=== PATIENT | female | born 1955 | race African-American/Black ===

== ENCOUNTER 2016-10-25 14:26 | Emergency (ER) | payer OTHER ==
[~2016-10-25] VITALS: Ht 160 cm; Wt 72.6 kg
[~2016-10-25 14:26] MED LIST: ALBU1.25 NEB; BUDE10.2 IH; CETI10TA22 PO; DULO20CA PO; FLUT9.9S NS; GLIM2TAB2 PO; HYDR12.53 PO; INSU100I13 SQ; OMEP20TA PO; SAXA5TAB PO
[2016-10-25 15:55] LABS: BASO # 0.1 x10^3/uL (0.0-0.2); BASO % 0 % (0-3); EOS % 0 % (0-3); HEMATOCRIT 37.5 % (36.0-47.0); HEMOGLOBIN 11.8 g/dL (12.0-15.5); LYMPH # 1.4 x10^3/uL (1.0-4.8); LYMPH % 10 % (24-48); MEAN CORPUSCULAR HEMOGLOBIN 28 pg (25-35); MEAN CORPUSCULAR HGB CONC 32 g/dL (31-37); MEAN CORPUSCULAR VOLUME 88 fL (79-100); MONO % 3 % (0-9); NEUT % 86 % (31-73); PLATELET COUNT 419 x10^3/uL (140-400); RED BLOOD COUNT 4.26 x10^6/uL (3.50-5.40); WHITE BLOOD COUNT 14.2 x10^3/uL (4.0-11.0)
[2016-10-25 16:04] LABS: CALCIUM 9.6 mg/dL (8.5-10.1); CREATININE 1.2 mg/dL (0.6-1.0); GFR 55.1; POTASSIUM 3.1 mmol/L (3.5-5.1)
--- NOTE | 2016-10-25 16:27 | EKG ---
[facility] [address] [place] [address] Test Date: 2016-10-25 Test Time: 15:01:10 Pat Name: MAIRA NGUYEN Department: Room: Gender: F [place]: : 1955 Requested By: Jameel PARIS Order Number: [id number] Reading MD: Measurements Intervals [place] Rate: 94 P: -7 MT: 126 QRS: -4 QRSD: 76 T: 45 QT: 382 QTc: 484 Interpretive Statements SINUS RHYTHM LEFTWARD AXIS LOW LIMB LEAD VOLTAGE PROLONGED QT RI6.01 Unconfirmed report No previous ECG available for comparison
[2016-10-25] MEDS ORDERED: POTASSIUM CHLORIDE 20 MEQ TABLET.ER. PO ONE (16:30)
--- NOTE | 2016-10-25 17:52 | PHYS DOC ---
Past Medical History Past Medical History: Asthma, COPD, Diabetes-Type II, Hypertension Past Surgical History: No Surgical History Alcohol Use: None Drug Use: None Adult General Chief Complaint Chief Complaint: SYNCOPE HPI HPI Patient is a 61 year old female who presents with for low blood sugar and associated syncope. She was feeling weak and does not recall time until EMS was at her house. states she passed out so he called EMS. Her blood sugar was low and they gave her IV replacement with normalization of mental status. She had an episode of emesis while passed out and she had slight dyspnea when she woke. She and refused transport by EMS at that time. She is feeling much better now. She denies current dyspnea, chest pain, fever or chills, nausea, abdominal pain, headache, diaphoresis, palpitations, exertional symptoms, hemoptysis, leg pain or swelling. She is taking long- acting insulin in the morning and otherwise taking pills for diabetes. Review of Systems Review of Systems Constitutional: Denies fever or chills [] Eyes: Denies change in visual acuity, redness, or eye pain [] HENT: Denies nasal congestion or sore throat [] Respiratory: Denies cough or shortness of breath [] Cardiovascular: No additional information not addressed in HPI [] GI: Denies abdominal pain, nausea, vomiting, bloody stools or diarrhea [] : Denies dysuria or hematuria [] Musculoskeletal: Denies back pain or joint pain [] Integument: Denies rash or skin lesions [] Neurologic: Denies headache, focal weakness or sensory changes [] Endocrine: Denies polyuria or polydipsia [] Current Medications Current Medications Current Medications Medications (Trade) Dose Ordered Sig/Gladis Start Time Stop Time Status Last Admin Dose Admin Potassium Chloride (Klor-Con) 40 meq 1X ONCE 10/25/16 16:30 10/25/16 16:31 DC 10/25/16 16:59 40 MEQ Allergies Allergies Allergies Coded Allergies Type Severity Reaction Last Updated Verified Penicillins Allergy Intermediate 04/22/15 Yes Physical Exam Physical Exam Constitutional: Well developed, well nourished, no acute distress, non-toxic appearance. [] HENT: Normocephalic, atraumatic, bilateral external ears normal, oropharynx moist, no oral exudates, nose normal. [] Eyes: PERRLA, EOMI. [] Neck: Normal range of motion, supple. [] Cardiovascular:Heart rate regular rhythm [] Lungs & Thorax: Bilateral breath sounds clear to auscultation [] Abdomen: Bowel sounds normal, soft, no tenderness. [] Skin: Warm, dry, no erythema, no rash. [] Back: No tenderness, no CVA tenderness. [] Extremities: No tenderness, ROM intact, no edema. [] Neurologic: Alert and oriented X 3, normal motor function, normal sensory function, no focal deficits noted. [] Psychologic: Affect normal, judgement normal, mood normal. [] Current Patient Data Vital Signs Vital Signs Date Time Temp Pulse Resp B/P Pulse Ox O2 Delivery O2 Flow Rate FiO2 10/25/16 18:24 90 18 125/59 100 Room Air 10/25/16 14:49 97.4 97.4 Lab Values Laboratory Tests Test 10/25/16 15:05 10/25/16 17:42 White Blood Count 14.2x10^3/uL (4.0-11.0) H Red Blood Count 4.26x10^6/uL (3.50-5.40) Hemoglobin 11.8g/dL (12.0-15.5) L Hematocrit 37.5% (36.0-47.0) Mean Corpuscular Volume 88fL (79-100) Mean Corpuscular Hemoglobin 28pg (25-35) Mean Corpuscular Hemoglobin Concent 32g/dL (31-37) Red Cell Distribution Width 14.0% (11.5-14.5) Platelet Count 419x10^3/uL (140-400) H Neutrophils (%) (Auto) 86% (31-73) H Lymphocytes (%) (Auto) 10% (24-48) L Monocytes (%) (Auto) 3% (0-9) Eosinophils (%) (Auto) 0% (0-3) Basophils (%) (Auto) 0% (0-3) Neutrophils # (Auto) 12.2x10^3uL (1.8-7.7) H Lymphocytes # (Auto) 1.4x10^3/uL (1.0-4.8) Monocytes # (Auto) 0.4x10^3/uL (0.0-1.1) Eosinophils # (Auto) 0.1x10^3/uL (0.0-0.7) Basophils # (Auto) 0.1x10^3/uL (0.0-0.2) Segmented Neutrophils % 86% (35-66) H Band Neutrophils % 1% (0-9) Lymphocytes % 10% (24-48) L Monocytes % 2% (0-10) Eosinophils % 1% (0-5) Platelet Estimate Increased (ADEQUATE) Sodium Level 146mmol/L (136-145) H Potassium Level 3.1mmol/L (3.5-5.1) L Chloride Level 106mmol/L (98-107) Carbon Dioxide Level 29mmol/L (21-32) Anion Gap 11 (6-14) Blood Urea Nitrogen 21mg/dL (7-20) H Creatinine 1.2mg/dL (0.6-1.0) H Estimated GFR (Cockcroft-Gault) 55.1 Glucose Level 143mg/dL (70-99) H Calcium Level 9.6mg/dL (8.5-10.1) Glucose (Fingerstick) 213mg/dL (70-99) H Laboratory Tests 10/25/16 15:05 Laboratory Tests 10/25/16 15:05 EKG EKG EKG as interpreted by me as normal sinus rhythm, rate 94, no ST-T changes, normal intervals, no ectopy Course & Med Decision Making Course & Med Decision Making Pertinent Labs and Imaging studies reviewed. (See chart for details) She has hypokalemia, that was replaced by mouth. Her blood sugar has remained stable during this time. She otherwise feels at her baseline. She is tolerating oral intake. She would like to go home. Return precautions given. She understands and agrees with plan. Dragon Disclaimer Dragon Disclaimer This electronic medical record was generated, in whole or in part, using a voice recognition dictation system. Departure Departure Impression: Primary Impression: Syncope Additional Impression: Hypoglycemia Disposition: 01 HOME, SELF-CARE Condition: STABLE Referrals: PRAFUL LUTZ MD (PCP) Patient Instructions: Hypoglycemia, [id number] Additional Instructions: Follow up with your primary care doctor within 1 week. Return for any concerns. Problem Qualifiers Primary Impression: Syncope Syncope type: unspecified Qualified Code: R55 - Syncope and collapse Jameel PARIS MD Oct 25, 2016 17:52
[2016-10-25 18:24] VITALS: BP 125/59
[2016-10-25 19:53] LABS: % EOS 1 % (0-5); PLT ESTIMATE INCREASED (ADEQUATE)
== END 2016-10-25 18:36 | disposition home or self-care (01) ==
LOC: ER 14:26
DX: R55 Syncope and collapse (principal); E11.649 Type 2 diabetes mellitus with hypoglycemia without coma; E87.6 Hypokalemia; J45.909 Unspecified asthma, uncomplicated; J44.9 Chronic obstructive pulmonary disease, unspecified; I10 Essential (primary) hypertension; Z88.0 Allergy status to penicillin
CPT/HCPCS: 36415; 80048; 85007; 85027; 93005; 99285-25

== ENCOUNTER → 2017-08-28 | Outpatient (CLI) | payer OTHER ==
[~2017-08-28] MED LIST changes: -OMEP20TA PO; +OMEP20TA8 PO
--- NOTE | 2017-08-28 14:03 | RAD ---
PA and lateral views of the chest were obtained. History: Lung nodule Comparison: January 31, 2013 The heart and pulmonary vasculature appear within normal limits. The lungs are clear. The pleural margins are clear. Impression: 1. No acute chest process is seen.
== END | disposition home or self-care (01) ==
LOC: RAD 13:07
PROVIDERS: ATTEND Internal Medicine Critical Care Medicine
DX: R91.1 Solitary pulmonary nodule (principal)
CPT/HCPCS: 71020

== ENCOUNTER → 2017-10-02 | Outpatient (CLI) | payer OTHER ==
[2017-10-02] MEDS: LIDOCAINE WITH 8.4% SOD BICARB 3 ML DISP.SYRIN. INJ (09:30)
[2017-10-02] MEDS: LIDOCAINE 2%/EPI 1:100,000 20 ML VIAL. IJ (09:30)
== END | disposition home or self-care (01) ==
LOC: MAMMO 10:47
DX: R92.0 Mammographic microcalcification found on diagnostic imaging of breast (principal)
CPT/HCPCS: 19085; 77022; 77065; C1713; J3490

== ENCOUNTER → 2017-10-24 | Outpatient (CLI) | payer OTHER | END | disposition home or self-care (01) | LOC: US 08:20 | DX: C50.911 Malignant neoplasm of unspecified site of right female breast (principal); J44.9 Chronic obstructive pulmonary disease, unspecified; I10 Essential (primary) hypertension; E11.9 Type 2 diabetes mellitus without complications; F17.200 Nicotine dependence, unspecified, uncomplicated; Z88.0 Allergy status to penicillin | CPT/HCPCS: 19081; 76641; 76942; 77065; 88305; 88361; C1713 ==

== ENCOUNTER → 2017-11-11 | Outpatient (CLI) | payer OTHER ==
[~2017-11-11] MED LIST changes: -ALBU1.25 NEB; -BUDE10.2 IH; -CETI10TA22 PO; +CONTRAST GIVEN MC; -DULO20CA PO; -FLUT9.9S NS; -GLIM2TAB2 PO; -HYDR12.53 PO; -INSU100I13 SQ; -OMEP20TA8 PO; -SAXA5TAB PO
[2017-11-11 10:37] LABS: CREATININE 1.1 mg/dL (0.6-1.0)
[2017-11-11 10:37] LABS: GFR 60.7
[2017-11-11] MEDS: IOHEXOL 300 MG/ML 100ML VIAL. IV (11:06)
[2017-11-11] MEDS: IOHEXOL 240 MG/ML 50ML VIAL. PO (11:09)
== END | disposition home or self-care (01) ==
LOC: NM 09:27
DX: C50.811 Malignant neoplasm of overlapping sites of right female breast (principal); C50.812 Malignant neoplasm of overlapping sites of left female breast; M19.012 Primary osteoarthritis, left shoulder; M19.011 Primary osteoarthritis, right shoulder; M47.892 Other spondylosis, cervical region; I10 Essential (primary) hypertension; J44.9 Chronic obstructive pulmonary disease, unspecified; E11.9 Type 2 diabetes mellitus without complications; Z17.1 Estrogen receptor negative status [ER-]; Z87.891 Personal history of nicotine dependence
CPT/HCPCS: 36415; 71260; 74177; 78306; 82565; 96374; A9503; Q9966; Q9967

== ENCOUNTER 2017-11-27 07:38 | Observation (INO) | payer OTHER ==
[2017-11-27] MEDS: IV RINGERS,LACTATED 1000ML 1,000 ML IV ×2 (07:00→08:42)
[~2017-11-27 07:38] MED LIST changes: -CONTRAST GIVEN MC; +HYDROmorphone 2 MG/ML VIAL IV; +LIDOCAINE 1% PF 2 ML VIAL. ID; +MORPHINE SULFATE 4 MG/ML DISP.SYRIN. IV; +ONDANSETRON PF 4 MG/2 ML VIAL. IV; +PROCHLORPERAZINE 10 MG/2 ML VIAL. IV; +fentaNYL PF VIAL 100 MCG/2 ML VIAL IV
[2017-11-27 08:45] LABS: POC GLUCOSE 105 mg/dL (70-99)
[2017-11-27] MEDS: LIDOCAINE WITH 8.4% SOD BICARB 3 ML DISP.SYRIN. INJ (08:45)
[2017-11-27] MEDS ORDERED: ISOSULFAN BLUE 50 MG/5 ML VIAL. SQ (09:42)
[2017-11-27] MEDS ORDERED: LIDOCAINE 1% PF 30 ML VIAL. (09:42)
[2017-11-27] MEDS ORDERED: PROPOFOL 20 ML IV (10:09)
[2017-11-27] MEDS ORDERED: DEXAMETHASONE SOD PHOS 20 MG/5 ML VIAL. (10:09)
[2017-11-27] MEDS ORDERED: SEVOFLURANE 61 TO 120 MINUTES. IH ×2 (10:09→13:57)
[2017-11-27] MEDS ORDERED: KETOROLAC 30 MG/ML INJ FOR OR. INJ (10:09)
[2017-11-27] MEDS ORDERED: ONDANSETRON PF 4 MG/2 ML VIAL. (10:09)
[2017-11-27] MEDS ORDERED: fentaNYL PF VIAL 100 MCG/2 ML VIAL (10:09)
[2017-11-27] MEDS ORDERED: LIDOCAINE 1% PF 5 ML VIAL. (10:10)
[2017-11-27] MEDS ORDERED: MIDAZOLAM HCL/PF 2 MG/2 ML VIAL. (11:00)
[2017-11-27] MEDS ORDERED: PHENYLEPHRINE 10 MG/ML VIAL. (11:36)
[2017-11-27] MEDS ORDERED: diphenhydrAMINE 50 MG/ML VIAL (13:40)
[2017-11-27] MEDS ORDERED: SEVOFLURANE > 120 MINUTES. IH (13:57)
[2017-11-27] MEDS ORDERED: NON FORMULARY ITEM (Ipratropium/Albuterol Sulfate (Combivent Respimat Inhal) 2 INH) IH (15:45)
[2017-11-27] MEDS ORDERED: MORPHINE SULFATE 4 MG/ML DISP.SYRIN. IV ×4 (15:45→16:15)
[2017-11-27] MEDS ORDERED: 0.9 % SODIUM CHLORIDE 10 ML DISP.SYRIN. IV (15:45)
[2017-11-27] MEDS: HEPARIN SODIUM 5,000 UNIT in IV NORMAL SALINE 500ML BAG 500 ML IRR (15:50)
[2017-11-27 15:53] LABS: POC GLUCOSE 172 mg/dL (70-99)
[2017-11-27] MEDS: fentaNYL PF VIAL 100 MCG/2 ML VIAL IV ×3 (16:18→17:25)
[2017-11-27] MEDS: INSULIN ASPART 100 UNIT/ML 10ML VIAL. SQ (16:20)
[2017-11-27] MEDS: HYDROmorphone 2 MG/ML VIAL IV ×4 (16:48→17:28)
[2017-11-27] MEDS: ONDANSETRON PF 4 MG/2 ML VIAL. IV (18:08)
[2017-11-27] MEDS: ALBUTEROL SULFATE 2.5 MG/3 ML NEBU. NEB ×2 (19:58→23:36)
[2017-11-27] MEDS: BUDESONIDE 0.5 MG/2 ML NEBU. NEB (19:58)
[2017-11-27] MEDS: IV 1/2 NORMAL SALINE 1,000 ML IV (20:50)
[2017-11-27] MEDS ORDERED: NON FORMULARY ITEM (Budesonide/Formoterol Fumarate (Symbicort 160-4.5 Mcg Inhaler) 2 PUFF) IH (21:00)
[2017-11-27 21:01] LABS: POC GLUCOSE 143 mg/dL (70-99)
[2017-11-28] MEDS: oxyCODONE/APAP 5/325 1 TAB TABLET PO ×2 (02:34→06:27)
[2017-11-28] MEDS: IV 1/2 NORMAL SALINE 1,000 ML IV ×3 (04:08→20:46)
[2017-11-28] MEDS ORDERED: INSULIN DETEMIR 300 UNITS/3 ML INSULN.PEN. SQ ×2 (07:00)
[2017-11-28] MEDS: BUDESONIDE 0.5 MG/2 ML NEBU. NEB ×2 (07:05→19:09)
[2017-11-28] MEDS: ALBUTEROL SULFATE 2.5 MG/3 ML NEBU. NEB ×4 (07:05→23:55)
[2017-11-28] MEDS: INSULIN DETEMIR 300 UNITS/3 ML INSULN.PEN. SQ (08:00)
[2017-11-28] MEDS: hydroCHLOROthiazide 12.5 MG CAPSULE PO (09:00)
[2017-11-28] MEDS: CETIRIZINE HCL 10 MG TABLET. PO (09:00)
[2017-11-28 09:20] LABS: POC GLUCOSE 104 mg/dL (70-99)
[2017-11-28] MEDS: ONDANSETRON PF 4 MG/2 ML VIAL. IV (09:58)
[2017-11-28] MEDS: PROCHLORPERAZINE 10 MG/2 ML VIAL. IV (10:46)
[2017-11-28 11:57] LABS: POC GLUCOSE 130 mg/dL (70-99)
[2017-11-28] MEDS ORDERED: HYDROcodone/APAP 5/325MG 1 TAB TABLET PO (12:45)
[2017-11-28 16:35] LABS: POC GLUCOSE 105 mg/dL (70-99)
[2017-11-28] MEDS: HYDROcodone/APAP 5/325MG 1 TAB TABLET PO (16:54)
[2017-11-28 20:41] LABS: POC GLUCOSE 126 mg/dL (70-99)
[2017-11-29] MEDS: ONDANSETRON PF 4 MG/2 ML VIAL. IV (05:03)
[2017-11-29] MEDS: HYDROcodone/APAP 5/325MG 1 TAB TABLET PO ×2 (05:40→15:43)
[2017-11-29] MEDS: ALBUTEROL SULFATE 2.5 MG/3 ML NEBU. NEB ×3 (05:49→12:49)
[2017-11-29] MEDS: BUDESONIDE 0.5 MG/2 ML NEBU. NEB (05:50)
[2017-11-29 08:50] LABS: POC GLUCOSE 115 mg/dL (70-99)
[2017-11-29] MEDS: PROCHLORPERAZINE 10 MG/2 ML VIAL. IV (09:01)
[2017-11-29] MEDS: CETIRIZINE HCL 10 MG TABLET. PO (09:02)
[2017-11-29] MEDS: hydroCHLOROthiazide 12.5 MG CAPSULE PO (09:02)
[2017-11-29] MEDS: INSULIN DETEMIR 300 UNITS/3 ML INSULN.PEN. SQ (09:11)
[2017-11-29] MEDS: IV 1/2 NORMAL SALINE 1,000 ML IV (10:12)
[2017-11-29 11:53] LABS: POC GLUCOSE 146 mg/dL (70-99)
== END 2017-11-29 15:55 | disposition home health service (06) ==
LOC: SURG 07:38 → 4 NORTH 16:35
PROVIDERS: Surgery
DX: C50.911 Malignant neoplasm of unspecified site of right female breast (principal); C50.912 Malignant neoplasm of unspecified site of left female breast; Z90.13 Acquired absence of bilateral breasts and nipples
CPT/HCPCS: 19303; 36556; 38792; 71045; 82962; 94640; 94760; 96372; 96374; 96375; 96376; A9541; C1769; C1788; G0378; G0379; J0780; J1100; J1170; J1200; J1644; J1815; J1885; J1956; J2250; J2405; J2704; J3010; J7040; J7613; J7626; Q9968

== ENCOUNTER → 2017-12-26 | Outpatient (CLI) | payer OTHER | END | disposition home or self-care (01) | LOC: ECHO 12:25 | DX: C50.811 Malignant neoplasm of overlapping sites of right female breast (principal); C50.812 Malignant neoplasm of overlapping sites of left female breast; Z17.1 Estrogen receptor negative status [ER-] | CPT/HCPCS: 93308 ==

== ENCOUNTER 2018-02-01 06:10 | Emergency (ER) | payer OTHER ==
[2018-02-01] MEDS: SODIUM PHOSPHATES 19/7GM 133 ML ENEMA. PR (07:57)
== END 2018-02-01 08:25 | disposition home or self-care (01) ==
LOC: ER 06:10
DX: K59.00 Constipation, unspecified (principal); E11.9 Type 2 diabetes mellitus without complications; I10 Essential (primary) hypertension; J44.9 Chronic obstructive pulmonary disease, unspecified; Z88.0 Allergy status to penicillin
CPT/HCPCS: 74022; 99283; 99284

== ENCOUNTER 2018-02-11 15:34 | Emergency (ER) | payer OTHER ==
[2018-02-11] MEDS: IPRATRPIUM/ALBUTEROL 0.5/2.5MG 3 ML NEBU. NEB (16:14)
[2018-02-11] MEDS: predniSONE 10 MG TABLET PO (16:27)
== END 2018-02-11 17:54 | disposition home or self-care (01) ==
LOC: ER 15:34
DX: J45.901 Unspecified asthma with (acute) exacerbation (principal); J44.9 Chronic obstructive pulmonary disease, unspecified; I10 Essential (primary) hypertension; E11.9 Type 2 diabetes mellitus without complications; Z87.891 Personal history of nicotine dependence; Z88.0 Allergy status to penicillin
CPT/HCPCS: 71045; 93005; 94640; 99284-25; J7512; J7620

== ENCOUNTER → 2018-03-28 | Outpatient (CLI) | payer OTHER | END | disposition home or self-care (01) | LOC: ECHO 08:07 | DX: C50.911 Malignant neoplasm of unspecified site of right female breast (principal); C50.912 Malignant neoplasm of unspecified site of left female breast; E11.9 Type 2 diabetes mellitus without complications; I10 Essential (primary) hypertension; Z87.891 Personal history of nicotine dependence | CPT/HCPCS: 93308 ==

== ENCOUNTER 2018-04-09 15:41 | Observation (INO) | payer OTHER ==
[2018-04-09 16:25] LABS: ADD MAN DIFF? NO
[2018-04-09 16:26] LABS: BASO # 0.1 x10^3/uL (0.0-0.2); BASO % 1 % (0-3); EOS # 0.1 x10^3/uL (0.0-0.7); EOS % 1 % (0-3); HEMATOCRIT 31.6 % (36.0-47.0); HEMOGLOBIN 10.7 g/dL (12.0-15.5); LYMPH # 0.7 x10^3/uL (1.0-4.8); LYMPH % 11 % (24-48); MEAN CORPUSCULAR HEMOGLOBIN 29 pg (25-35); MEAN CORPUSCULAR HGB CONC 34 g/dL (31-37); MEAN CORPUSCULAR VOLUME 87 fL (79-100); MONO # 0.2 x10^3/uL (0.0-1.1); MONO % 3 % (0-9); NEUT % 85 % (31-73); PLATELET COUNT 556 x10^3/uL (140-400); RED BLOOD COUNT 3.65 x10^6/uL (3.50-5.40); RED CELL DISTRIBUTION WIDTH 17.8 % (11.5-14.5); WHITE BLOOD COUNT 7.1 x10^3/uL (4.0-11.0)
[2018-04-09 16:32] LABS: BILIRUBIN,URINE NEGATIVE (NEG); CLARITY,URINE CLEAR; COLOR,URINE YELLOW; GLUCOSE,URINE NEGATIVE (NEG); NITRITE,URINE NEGATIVE (NEG); PROTEIN,URINE NEGATIVE (NEG-TRACE); UROBILINOGEN,URINE 0.2 mg/dL (0.2 mg/dL)
[2018-04-09 16:36] LABS: ANION GAP 9 (6-14); BLOOD UREA NITROGEN 10 mg/dL (7-20); CALCIUM 9.3 mg/dL (8.5-10.1); CARBON DIOXIDE 25 mmol/L (21-32); CHLORIDE 108 mmol/L (98-107); GFR 67.5; GLUCOSE 185 mg/dL (70-99); POTASSIUM 4.1 mmol/L (3.5-5.1); SODIUM 142 mmol/L (136-145)
[2018-04-09 16:37] LABS: MAGNESIUM 1.8 mg/dL (1.8-2.4)
[2018-04-09 16:39] LABS: BACTERIA,URINE 0 /HPF (0-FEW); RBC,URINE 0 /HPF (0-2); SQUAMOUS EPITHELIAL CELL,UR FEW /LPF; WBC,URINE 0 /HPF (0-4)
[2018-04-09 16:47] LABS: TROPONINI 0.065 ng/mL (0.000-0.055)
[2018-04-09 16:49] LABS: NT-PRO BNP 136 pg/mL (0-124); THYROID STIM HORMONE (TSH) 0.824 uIU/mL (0.358-3.74)
[2018-04-09 16:49] LABS: CKMB INDEX 0.8 % (0-4); CKMB MASS 0.9 ng/mL (0.0-3.6); CREATINE KINASE 116 U/L (26-192)
[2018-04-09 16:57] LABS: LACTIC ACID 1.1 mmol/L (0.4-2.0)
[2018-04-09] MEDS: IPRATRPIUM/ALBUTEROL 0.5/2.5MG 3 ML NEBU. NEB ×2 (17:11→20:00)
[2018-04-09] MEDS: methylPREDNISolone SOD SUCC PF 125 MG/2 ML VIAL. IV (17:26)
[2018-04-09] MEDS ORDERED: MORPHINE SULFATE 4 MG/ML DISP.SYRIN. IV (18:30)
[2018-04-09] MEDS ORDERED: LABETALOL 20 MG/4 ML DISP.SYRIN. IVP (18:30)
[2018-04-09] MEDS ORDERED: ONDANSETRON PF 4 MG/2 ML VIAL. IV (18:30)
[2018-04-09] MEDS ORDERED: ACETAMINOPHEN 325 MG TABLET. PO (18:30)
[2018-04-10 02:06] LABS: TROPONINI 0.043 ng/mL (0.000-0.055)
[2018-04-10 02:56] LABS: ANION GAP 10 (6-14); BLOOD UREA NITROGEN 15 mg/dL (7-20); CALCIUM 9.2 mg/dL (8.5-10.1); CARBON DIOXIDE 24 mmol/L (21-32); CHLORIDE 104 mmol/L (98-107); CREATININE 1.1 mg/dL (0.6-1.0); GFR 60.5; GLUCOSE 290 mg/dL (70-99); POTASSIUM 3.9 mmol/L (3.5-5.1); SODIUM 138 mmol/L (136-145)
[2018-04-10 03:01] LABS: BASO % 0 % (0-3); EOS % 0 % (0-3); HEMATOCRIT 32.2 % (36.0-47.0); HEMOGLOBIN 10.7 g/dL (12.0-15.5); LYMPH # 0.5 x10^3/uL (1.0-4.8); LYMPH % 8 % (24-48); MEAN CORPUSCULAR HEMOGLOBIN 29 pg (25-35); MEAN CORPUSCULAR HGB CONC 33 g/dL (31-37); MEAN CORPUSCULAR VOLUME 87 fL (79-100); MONO % 1 % (0-9); NEUT # 5.7 x10^3uL (1.8-7.7); NEUT % 91 % (31-73); PLATELET COUNT 537 x10^3/uL (140-400); RED BLOOD COUNT 3.71 x10^6/uL (3.50-5.40); RED CELL DISTRIBUTION WIDTH 17.7 % (11.5-14.5); WHITE BLOOD COUNT 6.2 x10^3/uL (4.0-11.0)
[2018-04-10 03:07] LABS: ADD MAN DIFF? YES
[2018-04-10 03:43] LABS: % LYMPHS 6 % (24-48); % SEGS 94 % (35-66); ANISOCYTOSIS SLIGHT; PLT ESTIMATE INCREASED (ADEQUATE)
[2018-04-10] MEDS: IPRATRPIUM/ALBUTEROL 0.5/2.5MG 3 ML NEBU. NEB ×2 (07:15→11:14)
[2018-04-10 08:07] LABS: POC GLUCOSE 171 mg/dL (70-99)
[2018-04-10] MEDS ORDERED: methylPREDNISolone SOD SUCC PF 40 MG/ML VIAL. IV (09:00)
[2018-04-10] MEDS: CETIRIZINE HCL 10 MG TABLET. PO (09:10)
[2018-04-10] MEDS: ASPIRIN ENTERIC COATED 81 MG TABLET.DR. PO (09:10)
[2018-04-10] MEDS: hydroCHLOROthiazide 12.5 MG CAPSULE PO (09:10)
[2018-04-10] MEDS: LISINOPRIL 20 MG TABLET PO (09:11)
[2018-04-10] MEDS: INSULIN GLARGINE 300 UNITS/3 ML INSULN.PEN. SQ (09:16)
== END 2018-04-10 11:20 | disposition home or self-care (01) ==
LOC: ER 15:41 → 2 NORTH 18:05
DX: R06.02 Shortness of breath (principal); I10 Essential (primary) hypertension; E11.9 Type 2 diabetes mellitus without complications; J44.9 Chronic obstructive pulmonary disease, unspecified; Z85.3 Personal history of malignant neoplasm of breast
CPT/HCPCS: 36415; 71045; 80048; 81001; 82553; 82962; 83605; 83735; 83880; 84443; 84484; 85007; 85025; 93005; 94640; 96372; 96374; 99285-25; G0378; G0379; J1815; J2930; J7620

== ENCOUNTER → 2018-06-03 | Outpatient (CLI) | payer OTHER ==
[2018-04-10 11:00] VITALS: BP 151/80
[~2018-06-03] MED LIST changes: +ALBU1.25 NEB; +ASPI-482 PO; +BUDE10.2 IH; +CETI10TA22 PO; +DEXA4TAB PO; +DOCU100C28 PO; +DULO20CA PO; +FLUT9.9S NS; +GLIM2TAB2 PO; +HYDR12.53 PO; -HYDROmorphone 2 MG/ML VIAL IV; +INSU100I13 SQ; +IOHEXOL 300 MG/ML 100ML VIAL. IV ONE; +IPRA4AER IH; -LIDOCAINE 1% PF 2 ML VIAL. ID; +LISI-334 PO; +LISI-338 PO; -MORPHINE SULFATE 4 MG/ML DISP.SYRIN. IV; +OMEP20TA8 PO; +ONDA8TAB9 PO; -ONDANSETRON PF 4 MG/2 ML VIAL. IV; +POLY119P4 PO; +POTA10TA12 PO; +PRED50TA PO; -PROCHLORPERAZINE 10 MG/2 ML VIAL. IV; +PROM12.57 PR; +SAXA5TAB PO; -fentaNYL PF VIAL 100 MCG/2 ML VIAL IV
--- NOTE | 2018-06-03 14:20 | RAD ---
CTA of the chest with contrast, 06/03/2018: HISTORY: Shortness of breath Multidetector CT imaging was performed following an IV bolus injection of iodinated contrast material. Multiplanar reconstructions were produced including coronal MIP images. No filling defects are seen in the central pulmonary arteries to suggest pulmonary emboli. There is minimal calcific plaquing of the thoracic aorta without evidence of aneurysm or dissection. No mediastinal or hilar adenopathy is seen. A right Port-A-Cath extends into the superior vena cava. There are moderate emphysematous changes in the lungs. There are scattered linear parenchymal opacities in the lungs. Some of these were present on the previous study and are compatible with scarring. Mild streaky and groundglass opacities in the anterior aspect of the right lower lobe are new. There are also new streaky opacities in the left lower lobe laterally in the costophrenic angle. The findings suggest atelectasis. A 5 mm groundglass opacity in the superior segment of the left lower lobe as seen on image 53 of series #3 appears unchanged. There are several other faint scattered nonspecific groundglass opacities, likely related to the patient's smoking history. There is no evidence of pleural fluid. IMPRESSION: 1. No CT evidence of central pulmonary emboli. 2. Moderate pulmonary emphysema with scattered linear and groundglass pulmonary opacities, many of which probably represent scars. A neoplastic etiology cannot be excluded. 3. New mild streaky and groundglass lower lobe opacities may be due to atelectasis or inflammation. PQRS Compliance Statement: One or more of the following individualized dose reduction techniques were utilized for this examination: 1. Automated exposure control 2. Adjustment of the mA and/or kV according to patient size 3. Use of iterative reconstruction technique Electronically signed by: Jermaine Alejandra MD (06/03/2018 2:17 PM) [facility]
== END | disposition home or self-care (01) ==
LOC: CT 13:12
PROVIDERS: ATTEND Internal Medicine Hematology & Oncology
DX: J43.8 Other emphysema (principal); R91.8 Other nonspecific abnormal finding of lung field; I10 Essential (primary) hypertension; E11.9 Type 2 diabetes mellitus without complications; E87.6 Hypokalemia; M19.011 Primary osteoarthritis, right shoulder; M19.012 Primary osteoarthritis, left shoulder; Z85.3 Personal history of malignant neoplasm of breast; Z87.891 Personal history of nicotine dependence; Z90.13 Acquired absence of bilateral breasts and nipples; Z88.0 Allergy status to penicillin
CPT/HCPCS: 71275; Q9967

== ENCOUNTER → 2018-06-17 | Outpatient (CLI) | payer OTHER ==
[2018-04-10 11:00] VITALS: BP 151/80
[~2018-06-17] MED LIST changes: -IOHEXOL 300 MG/ML 100ML VIAL. IV ONE
--- NOTE | 2018-06-17 10:57 | CARD ---
MR#: [id number] Date of Study: 06/17/2018 Ordering Physician: FLORI VELAZCO, Referring Physician: FLORI VELAZCO, Tech: Marija Solitario [facility] APPROVED REPORT EXAM: LIMITED Two-dimensional and M-mode echocardiogram with Doppler and color Doppler. Other Information Quality : GoodHR: 96bpm Rhythm : NSR INDICATION Palpitations Chemotherapy 2D DIMENSIONS RVDd2.4 (2.9-3.5cm)IVSd0.9 (0.7-1.1cm) Aortic Root(2D)2.9 (2.0-3.7cm)LVDd4.4 (3.9-5.9cm) PWd0.9 (0.7-1.1cm)LVDs2.7 (2.5-4.0cm) FS (%) 38.9 %SV60.9 ml LVEF(%)69.5 (>50%) Mitral Valve MV E Jydgftnm428.0cm/sMV DECEL [id number] MV A Vybhbcgs771.0cm/sE/A Ratio0.9 LEFT VENTRICLE The left ventricle is normal size. Global left ventricle strain calculated at -18.8. There is normal left ventricular wall thickness. The left ventricular systolic function is normal. The Ejection Fract ion is 60%. There is normal LV segmental wall motion. The left ventricular diastolic function and juan ling is normal for age. RIGHT VENTRICLE The right ventricle is normal size. There is normal right ventricular wall thickness. The right ventr icular systolic function is normal. ATRIA The left atrium size is normal. The right atrium size is normal. The interatrial septum is intact wit h no evidence for an atrial septal defect or patent foramen ovale as noted on 2-D or Doppler imaging. AORTIC VALVE The aortic valve is normal in structure and function. The aortic valve is trileaflet. Doppler and Col or Flow revealed no significant aortic regurgitation. There is no significant aortic valvular stenosi s. MITRAL VALVE The mitral valve is normal in structure and function. There is no evidence of mitral valve prolapse. There is no mitral valve stenosis. Doppler and Color Flow revealed no mitral valve regurgitation note d. TRICUSPID VALVE The tricuspid valve is normal in structure and function. Doppler and Color Flow revealed no tricuspid valve regurgitation noted. There is no tricuspid valve prolapse or vegetation. There is no tricuspid valve stenosis. GREAT VESSELS The aortic root is normal in size. PERICARDIAL EFFUSION There is no evidence of significant pericardial effusion. Critical Notification Critical Value: No <Conclusion> The left ventricular systolic function is normal. The Ejection Fraction is 60%. There is normal LV segmental wall motion. Global left ventricle strain calculated at -18.8. No significant valvular abnormalities. There is no evidence of significant pericardial effusion. Signed by : Júnior Orozco, Electronically Approved : 06/17/2018 10:56:08
== END | disposition home or self-care (01) ==
LOC: ECHO 08:58
PROVIDERS: ATTEND Internal Medicine Hematology & Oncology
DX: R00.2 Palpitations (principal); R06.02 Shortness of breath; Z85.3 Personal history of malignant neoplasm of breast
CPT/HCPCS: 93306

== ENCOUNTER → 2018-09-10 | Outpatient (CLI) | payer OTHER ==
[2018-04-10 11:00] VITALS: BP 151/80
[~2018-09-10] MED LIST changes: +AMLO2.5T3 PO; -HYDR12.53 PO; +HYDR12.575 PO
--- NOTE | 2018-09-10 15:42 | CARD ---
MR#: [id number] Date of Study: 09/10/2018 Ordering Physician: FLORI VELAZCO, Referring Physician: FLORI VELAZCO, Tech: Yen Diop APPROVED REPORT EXAM: Two-dimensional and M-mode echocardiogram with Doppler and color Doppler. Other Information Quality : AverageHR: 88bpm INDICATION Arrhythmia Breast Cancer RISK FACTORS Hypertension Diabetes 2D DIMENSIONS RVDd3.1 (2.9-3.5cm)Left Atrium(2D)2.5 (1.6-4.0cm) IVSd1.1 (0.7-1.1cm)Aortic Root(2D)3.3 (2.0-3.7cm) LVDd4.0 (3.9-5.9cm)LVOT Diameter2.1 (1.8-2.4cm) PWd0.8 (0.7-1.1cm)LVDs2.5 (2.5-4.0cm) FS (%) 36.7 %SV46.9 ml Aortic Valve AoV Peak Hiro.133.5cm/sAoV VTI24.6cm AO Peak GR.7.1mmHgLVOT Peak Hiro.94.8cm/s LVOT VTI 17.02cmAO Mean GR.4mmHg DANIELLE (VMAX)1.47lx2WMJ (VTI)2.35cm2 Mitral Valve MV E Yduemwal216.0cm/sMV DECEL [id number] MV A Jatkvyvd622.6cm/sMV BMY30dd E/A Ratio1.0MVA (PHT)4.29cm2 TDI E/Lateral E'12.2E/Medial E'8.4 Pulmonary Valve PV Peak Korrstxk91.5cm/sPV Peak Grad.4mmHg Tricuspid Valve RAP [id number] Pulmonary Vein S1 Udhykqwp18.7cm/sD2 Xtgewmcq23.3cm/s PVa bmtwyxli746tfqm LEFT VENTRICLE The left ventricle is normal size. There is borderline concentric left ventricular hypertrophy. The l eft ventricular systolic function is normal and the ejection fraction is within normal range. Left ve ntricular ejection fraction is 55-60%. There is normal LV segmental wall motion. The left ventricular diastolic function and filling is normal for age. RIGHT VENTRICLE The right ventricle is normal size. There is normal right ventricular wall thickness. The right ventr icular systolic function is normal. ATRIA The left atrium size is normal. The right atrium size is normal. The interatrial septum is intact wit h no evidence for an atrial septal defect or patent foramen ovale as noted on 2-D or Doppler imaging. AORTIC VALVE The aortic valve is normal in structure and function. Doppler and Color Flow revealed no significant aortic regurgitation. There is no significant aortic valvular stenosis. MITRAL VALVE The mitral valve is normal in structure and function. There is no evidence of mitral valve prolapse. There is no mitral valve stenosis. Doppler and Color Flow revealed no mitral valve regurgitation note d. TRICUSPID VALVE The tricuspid valve is not well visualized. Doppler and Color Flow revealed no tricuspid valve regurg itation noted. There is no tricuspid valve stenosis. PULMONIC VALVE The pulmonic valve is not well visualized. Doppler and Color Flow revealed no pulmonic valvular regur gitation. GREAT VESSELS The aortic root is normal in size. The IVC is normal in size and collapses >50% with inspiration. PERICARDIAL EFFUSION There is no evidence of significant pericardial effusion. Critical Notification Critical Value: No <Conclusion> The left ventricle is normal size. The left ventricular systolic function is normal and the ejection fraction is within normal range. Left ventricular ejection fraction is 55-60%. There is borderline concentric left ventricular hypertrophy. There is no significant aortic valvular stenosis. Doppler and Color Flow revealed no significant aortic regurgitation. Doppler and Color Flow revealed no mitral valve regurgitation noted. Doppler and Color Flow revealed no tricuspid valve regurgitation noted. Signed by : Anil Santos MD Electronically Approved : 09/10/2018 15:41:08
== END | disposition home or self-care (01) ==
LOC: ECHO 09:23
PROVIDERS: ATTEND Internal Medicine Hematology & Oncology
DX: I49.9 Cardiac arrhythmia, unspecified (principal); I10 Essential (primary) hypertension; E11.9 Type 2 diabetes mellitus without complications; Z85.3 Personal history of malignant neoplasm of breast
CPT/HCPCS: 93306

== ENCOUNTER → 2018-12-10 | Outpatient (CLI) | payer OTHER ==
[2018-09-13 10:33] VITALS: BP 120/60
[~2018-12-10] MED LIST changes: -AMLO2.5T3 PO; +AMLO2.5T5 PO
--- NOTE | 2018-12-10 14:37 | CARD ---
MR#: [id number] Date of Study: 12/10/2018 Ordering Physician: FLORI VELAZCO, Referring Physician: FLORI VELAZCO Tech: Sarah Velarde RDCS APPROVED REPORT EXAM: LIMITED Two-dimensional echocardiogram Other Information Quality : Good INDICATION Breast Cancer 2D DIMENSIONS RVDd2.9 (2.9-3.5cm)Left Atrium(2D)2.9 (1.6-4.0cm) IVSd1.0 (0.7-1.1cm)Aortic Root(2D)2.9 (2.0-3.7cm) LVDd4.5 (3.9-5.9cm)LVOT Diameter2.0 (1.8-2.4cm) PWd0.9 (0.7-1.1cm)LVDs2.5 (2.5-4.0cm) FS (%) 27.0 %SV70.4 ml LVEF(%)55.0 (>50%) LEFT VENTRICLE Limited echocardiogram for LV function. The left ventricle is normal size. There is normal left ventr icular wall thickness. The left ventricular systolic function is normal and the ejection fraction is within normal range. The Ejection Fraction is 55-60%. There is normal LV segmental wall motion. PERICARDIAL EFFUSION There is no evidence of significant pericardial effusion. Critical Notification Critical Value: No <Conclusion> Limited echocardiogram for LV function. The left ventricle is normal size. There is normal left ventricular wall thickness. The left ventricular systolic function is normal and the ejection fraction is within normal range. The Ejection Fraction is 55-60%. There is no evidence of significant pericardial effusion. Signed by : Anil Santos MD Electronically Approved : 12/10/2018 14:37:03
== END | disposition home or self-care (01) ==
LOC: ECHO 12:30
PROVIDERS: ATTEND Internal Medicine Hematology & Oncology
DX: C50.811 Malignant neoplasm of overlapping sites of right female breast (principal); C50.812 Malignant neoplasm of overlapping sites of left female breast; Z17.1 Estrogen receptor negative status [ER-]
CPT/HCPCS: 93308

== ENCOUNTER → 2018-12-30 | Outpatient (CLI) | payer OTHER ==
[2018-09-13 10:33] VITALS: BP 120/60
--- NOTE | 2018-12-30 16:49 | RAD ---
CT study of the chest without contrast COMPARISON: June 03, 2018. Clinical indications: Breast cancer. TECHNIQUE: After IV infusion of 75 cc of Omnipaque 300, helical CT scanning of the chest was performed. PQRS compliance Statement One or more of the following individualized dose reduction techniques were utilized for this study: 1. Automated exposure control 2. Adjustment of the mA and/or kV according to patient size 3. Use of iterative reconstruction technique FINDINGS: No enlarged thoracic lymphadenopathy is evident. No focal aneurysmal dilatation of the thoracic aorta is seen. Calcified atheromatous disease of the coronary arteries is seen. The heart size is normal and no pericardial effusion is seen. Both breasts surgically absent. No soft tissue mass of the right anterior chest wall is evident. There is focal thickening of the lateral aspect of the left lateral anterior chest wall just below the left axilla. This is new. This measures 4.7 cm transversely and 2.0 cm in AP thickness and 7.7 cm in vertical dimension. The lateral subpleural nodule of the right upper lobe is stable. There is another nodule seen within the anterior aspect of the superior segment of the left lower lobe which is stable. There is a nodule within the superior segment of the right lower lobe which is stable. No new lung nodule or new lung infiltrate is seen. No pleural effusion or pneumothorax is evident. Bilateral centrilobular emphysema is seen. The proximal bronchial tree is patent. No lytic process is seen. No adrenal mass is seen. IMPRESSION: Stable bilateral lung nodules since June 03, 2018. The lung nodule within the lateral aspect of the right upper lobe and superior segment of the right lower lobe are new since July 23, [address] The superior segment left lower lobe lung nodule was seen in 2015 and is stable consistent with a benign finding. No new lung nodules are seen since June 03 2018. New finding of elliptical soft tissue thickening of the left lateral chest wall just below the left axillary region. Clinical correlation is recommended. Electronically signed by: Abdiel Sexton MD (12/30/2018 4:46 PM) [place] [id number]
== END | disposition home or self-care (01) ==
LOC: CT 11:46
PROVIDERS: ATTEND Internal Medicine Hematology & Oncology
DX: C50.811 Malignant neoplasm of overlapping sites of right female breast (principal); C50.812 Malignant neoplasm of overlapping sites of left female breast; J43.2 Centrilobular emphysema; R91.8 Other nonspecific abnormal finding of lung field; I25.10 Atherosclerotic heart disease of native coronary artery without angina pectoris; Z17.1 Estrogen receptor negative status [ER-]; Z87.891 Personal history of nicotine dependence
CPT/HCPCS: 71250

== ENCOUNTER → 2019-03-19 | Outpatient (CLI) | payer MEDICARE, OTHER ==
[2018-09-13 10:33] VITALS: BP 120/60
--- NOTE | 2019-03-19 14:31 | CARD ---
MR#: [id number] Date of Study: 03/19/2019 Ordering Physician: FLORI VELAZCO, Referring Physician: FLORI VELAZCO, Tech: Marija Solitario [facility] APPROVED REPORT EXAM: LIMITED Two-dimensional and M-mode echocardiogram. Other Information Quality : AverageHR: 80bpm Rhythm : NSR INDICATION Breast Cancer 2D DIMENSIONS RVDd2.7 (2.9-3.5cm)Left Atrium(2D)2.9 (1.6-4.0cm) IVSd0.7 (0.7-1.1cm)Aortic Root(2D)3.1 (2.0-3.7cm) LVDd4.9 (3.9-5.9cm)PWd0.7 (0.7-1.1cm) LVDs3.1 (2.5-4.0cm)FS (%) 35.7 % SV72.9 mlLVEF(%)65.0 (>50%) LEFT VENTRICLE The left ventricle is normal size. There is normal left ventricular wall thickness. The left ventricu lar systolic function is normal and the ejection fraction is within normal range. The Ejection Fracti on is 60-65%. There is normal LV segmental wall motion. Normal global strain -19.7 RIGHT VENTRICLE The right ventricle is normal size. There is normal right ventricular wall thickness. The right ventr icular systolic function is normal. AORTIC VALVE The aortic valve is normal in structure and function. The aortic valve is trileaflet. MITRAL VALVE The mitral valve is normal in structure and function. There is no evidence of mitral valve prolapse. There is no mitral valve stenosis. TRICUSPID VALVE The tricuspid valve is normal in structure and function. Doppler and Color Flow revealed no tricuspid valve regurgitation noted. There is no tricuspid valve prolapse or vegetation. PULMONIC VALVE The pulmonic valve is not visualized. GREAT VESSELS The aortic root is normal in size. PERICARDIAL EFFUSION There is no evidence of significant pericardial effusion. Critical Notification Critical Value: No <Conclusion> The left ventricular systolic function is normal and the ejection fraction is within normal range. Th e Ejection Fraction is 60-65%. There is normal LV segmental wall motion. Normal global strain -19.7 Signed by : Ben Marcus, Electronically Approved : 03/19/2019 14:30:45
== END | disposition home or self-care (01) ==
LOC: ECHO 13:41
PROVIDERS: ATTEND Internal Medicine Hematology & Oncology
DX: C50.811 Malignant neoplasm of overlapping sites of right female breast (principal); C50.812 Malignant neoplasm of overlapping sites of left female breast; Z17.1 Estrogen receptor negative status [ER-]
CPT/HCPCS: 93308

== ENCOUNTER → 2019-06-12 | Outpatient (CLI) | payer MEDICARE, OTHER ==
[2018-09-13 10:33] VITALS: BP 120/60
[~2019-06-12] MED LIST changes: -GLIM2TAB2 PO; +GLIM2TAB3 PO
--- NOTE | 2019-06-12 17:32 | RAD ---
VENOUS UPPER EXTREMITY RIGHT History: Right IJ thrombosis Comparison: January 09, 2018. Procedure: Color flow Doppler, Doppler spectral analysis, and 2D images are obtained with and without compression in the jugular vein, subclavian vein, axillary vein, brachial vein, radial vein, ulnar vein, and basilic and cephalic veins. Findings: Partial thrombosis of the right internal jugular vein. There is normal color flow, augmentation, and compressibility in the subclavian, axillary, brachial, radial, ulnar, basilic and cephalic veins.. No evidence of deep venous thrombus is present. IMPRESSION: 1. Partial right internal jugular vein thrombosis. Electronically signed by: Best Alicea DO (06/12/2019 5:29 PM) [id number]
== END | disposition home or self-care (01) ==
LOC: US 15:59
PROVIDERS: ATTEND Internal Medicine Hematology & Oncology
DX: I82.C11 Acute embolism and thrombosis of right internal jugular vein (principal); C50.812 Malignant neoplasm of overlapping sites of left female breast; C50.811 Malignant neoplasm of overlapping sites of right female breast; Z17.1 Estrogen receptor negative status [ER-]; I74.2 Embolism and thrombosis of arteries of the upper extremities
CPT/HCPCS: 93971

== ENCOUNTER → 2019-06-12 | Outpatient (CLI) | payer MEDICARE, OTHER ==
[2018-09-13 10:33] VITALS: BP 120/60
--- NOTE | 2019-06-12 17:35 | RAD ---
Examination: CT CHEST WO CONTRAST History: Lung nodule, breast cancer Comparison/Correlation: 12/30/2018 CT chest without contrast Findings: Axial images of the chest were obtained without contrast. Sagittal and coronal reformatted images were provided. High-resolution 0.1 cm section thickness images were also provided. Bilateral mastectomy noted. Scarring involving the right upper chest subcutaneous fat corresponds to site of previously present effusion port catheter. At the lateral left lower axillary level, there is a chest wall fluid collection superficial to the musculature is present measuring 6.6 cm x 1.4 cm in the axial plane and is slightly increased in interval. This likely represents a postoperative seroma or hematoma. Diffuse emphysematous involvement of the lung pierre is noted. Groundglass infiltrate in the lateral right upper lung field is increased in size in the interval currently measuring 2.2 cm anteroposterior by 2 cm transverse by 2.5 cm longitudinal. This represents an increase by approximately 0.7 cm in the axial dimension and 0.7 cm longitudinal. Possibility of a very small nodular component is questioned Right lower lobe nodule at the superior segment is again present and similar size measuring up to 0.5 cm diameter although it is slightly less evident on the axial plane probably due to volume averaging. No suspicious new pulmonary nodule. No new infiltrates. Pulmonary hyperinflation is evident. No pleural or pericardial effusion. Partially visualized upper abdomen is unremarkable. Bony structures are unchanged. Impression: Increased size of groundglass infiltrate involving the right upper lobe at the lateral upper thoracic level. Underlying infectious, inflammatory, or neoplastic etiologies are possibilities. Right lower lobe pulmonary nodule is stable. Emphysema. PQRS Compliance Statement: One or more of the following individualized dose reduction techniques were utilized for this examination: 1. Automated exposure control 2. Adjustment of the mA and/or kV according to patient size 3. Use of iterative reconstruction technique Electronically signed by: Arian Pritchett MD (06/12/2019 5:32 PM) [facility]
== END | disposition home or self-care (01) ==
LOC: CT 16:00
PROVIDERS: ATTEND Internal Medicine Critical Care Medicine
DX: J43.9 Emphysema, unspecified (principal)
CPT/HCPCS: 71250

== ENCOUNTER → 2019-07-31 | Outpatient (CLI) | payer MEDICARE, OTHER ==
[2018-09-13 10:33] VITALS: BP 120/60
--- NOTE | 2019-07-31 16:00 | RAD ---
EXAM: PET/CT SKULL BASE TO MID THIGH. HISTORY: Lung nodule.History of prior breast cancer. COMPARISON: 06/12/2019. TECHNIQUE: CT was performed from the skull base through the mid thighs for the purposes of attenuation correction. 15.0 mCi F-18 fluorodeoxyglucose (FDG) was administered intravenously. After an uptake period, positron emission tomography was performed from the skull base through the mid thighs. The PET and CT data were fused and interpreted in combination a dedicated workstation. Blood glucose level was 117 mg/dL at the time of FDG administration. FINDINGS: A 15 x 12 mm groundglass and soft tissue density nodule in the right upper lobe is adjacent to fiducial markers. It is hypermetabolic with maximum SUV 5.2. A small nodule in the superior segment of the right lower lobe measures 9 mm but is only mildly hypermetabolic at maximum SUV 1.0. This is indeterminate. There are no clearly hypermetabolic mediastinal lymph nodes. A soft tissue density nodule within the subcutaneous fat of the left lower back measures 13 mm. Maximum SUV is 1.7 cm. Symmetric uptake within the adenoids and larynx is likely muscular. Uptake within the right infraspinatus muscle is also likely muscular. There are changes of bilateral mastectomy. A seroma in the left mastectomy bed measures 6.2 x 1.6 cm and is unchanged. Activity along its periphery demonstrates maximum SUV 2.1 and is likely inflammatory. There are no hypermetabolic or enlarged axillary lymph nodes. Additional CT findings include moderate centrilobular emphysema. Right thyroid nodule measures 9 mm and is likely benign. Coronary atherosclerotic calcifications are noted. IMPRESSION: 1. A hypermetabolic posttreatment nodule in the right upper lobe is denser the non the prior study and measures 1.5 cm. This may represent posttreatment inflammation, but residual active disease cannot be excluded. 2. A 9 mm nodule in the superior segment of the right lower lobe demonstrates only mild metabolism but remain suspicious at this small size. Attention on further follow-up. 3. No evidence of distant metastatic disease. 4. Mild uptake along a seroma in the left mastectomy bed is likely inflammatory.
== END | disposition home or self-care (01) ==
LOC: PETSC 09:04
PROVIDERS: ATTEND Internal Medicine Critical Care Medicine
DX: J43.2 Centrilobular emphysema (principal); R91.8 Other nonspecific abnormal finding of lung field; E04.1 Nontoxic single thyroid nodule; I25.10 Atherosclerotic heart disease of native coronary artery without angina pectoris; Z85.3 Personal history of malignant neoplasm of breast
CPT/HCPCS: 78815; A9552

== ENCOUNTER → 2019-10-30 | Outpatient (CLI) | payer MEDICARE, OTHER ==
[2018-09-13 10:33] VITALS: BP 120/60
[~2019-10-30] MED LIST changes: +ALBU0.63 NEB; +AMLO10TA8 PO; +ATOR10TA60 PO; -CETI10TA22 PO; +CETI10TA24 PO; -GLIM2TAB3 PO; +GLIM2TAB7 PO
--- NOTE | 2019-10-30 18:23 | RAD ---
Examination: CT CHEST WO CONTRAST History: Right lung cancer Comparison/Correlation: 06/12/2019 CT chest without contrast, PET CT exam 07/31/2019 Findings: Axial images of the chest were obtained without contrast. Sagittal and coronal reformatted images were obtained. Emphysematous involving the lung pierre is noted. There is a 1 cm x 0.8 cm nodule with ill-defined margins at the lateral right upper lung field on axial image 16 and this is smaller in size as compared to the previous process evident on PET CT exam. Radiopaque density which may represent a fiducial is present at this site. Additional radiopaque similar density which may represent a fiducial is present more inferiorly on axial image 18. Right lower lobe superior segment nodule measuring 0.9 cm x 0.5 cm present it is similar to the prior exam. No pleural or pericardial effusion. No enlarged thoracic lymph nodes. Bony structures are unremarkable. Partially visualized upper abdomen is unremarkable. Impression: A nodule at the lateral right upper lung field is present smaller in size compared to process seen on 07/31/2019 PET/CT exam. No new pulmonary nodules or masses. No new infiltrate. Centrilobular emphysema. PQRS Compliance Statement: One or more of the following individualized dose reduction techniques were utilized for this examination: 1. Automated exposure control 2. Adjustment of the mA and/or kV according to patient size 3. Use of iterative reconstruction technique Electronically signed by: Arian Pritchett MD (10/30/2019 6:20 PM) [id number]
== END | disposition home or self-care (01) ==
LOC: CT 10:13
PROVIDERS: ATTEND Radiology Radiation Oncology
DX: J43.2 Centrilobular emphysema (principal); R91.1 Solitary pulmonary nodule; Z85.118 Personal history of other malignant neoplasm of bronchus and lung
CPT/HCPCS: 71250

== ENCOUNTER → 2020-01-08 | Outpatient (CLI) | payer MEDICARE, OTHER ==
[2018-09-13 10:33] VITALS: BP 120/60
[~2020-01-08] MED LIST changes: +IOHEXOL 300 MG/ML 100ML VIAL. IV ONE
--- NOTE | 2020-01-08 11:52 | RAD ---
PQRS Compliance Statement: One or more of the following individualized dose reduction techniques were utilized for this examination: 1. Automated exposure control 2. Adjustment of the mA and/or kV according to patient size 3. Use of iterative reconstruction technique CT CHEST WO CONTRAST Clinical Indication: Surveillance of lung cancer. History of breast cancer with bilateral mastectomy. Comparison: CT chest without contrast. TECHNIQUE: Helical CT imaging of the chest is performed without IV contrast. Findings: Bilateral mastectomy. No mediastinal adenopathy. The great vessels are stable, ectatic ascending thoracic aorta. Coronary artery disease. Cardiac size normal, no pericardial effusion. There is no pleural effusion. Central airways are patent. Moderate centrilobular emphysema. Right upper lobe irregular nodule with adjacent fiducial measures 11 x 9 mm, previously 10 x 8 mm. There are faint groundglass opacities now surrounding the nodule. Second fiducial more inferiorly is redemonstrated. Irregular nodule in the superior segment of the right lower lobe is stable, image 29. There is a new nodule in the posterior left upper lobe measuring 7 x 5 mm, image 21. Reticular opacity in the superior segment of the left lower lobe is unchanged. Visualized upper abdomen is unremarkable. Thoracic spine alignment is maintained. IMPRESSION: 1. There is a new subcentimeter nodule in the posterior left upper lobe. 2. Irregular nodule in the right upper lobe is unchanged. 3. Moderate centrilobular emphysema. Electronically signed by: Kenneth Polo MD (01/08/2020 11:49 AM) [id number]
== END | disposition home or self-care (01) ==
LOC: CT 09:36
PROVIDERS: ATTEND Internal Medicine Hematology & Oncology
DX: C34.90 Malignant neoplasm of unspecified part of unspecified bronchus or lung (principal); J43.2 Centrilobular emphysema; R91.8 Other nonspecific abnormal finding of lung field; E11.9 Type 2 diabetes mellitus without complications; Z90.13 Acquired absence of bilateral breasts and nipples; Z88.0 Allergy status to penicillin; Z85.3 Personal history of malignant neoplasm of breast
CPT/HCPCS: 71250

== ENCOUNTER → 2021-04-05 | Outpatient (CLI) | payer MEDICARE, OTHER ==
[2018-09-13 10:33] VITALS: BP 120/60
[~2021-04-05] MED LIST changes: +AMLO-187 PO; -AMLO10TA8 PO; -CETI10TA24 PO; +CETI10TA74 PO; -IOHEXOL 300 MG/ML 100ML VIAL. IV ONE; -LISI-334 PO; -LISI-338 PO; +LISI-517 PO; +LISI20TA18 PO
--- NOTE | 2021-04-05 14:05 | RAD ---
PQRS Compliance Statement: One or more of the following individualized dose reduction techniques were utilized for this examinat ion: 1. Automated exposure control 2. Adjustment of the mA and/or kV according to patient size 3. Use of iterative reconstruction technique CT THORAX WO 04/05/2021 10:30 AM Indication: Staging malignant neoplasm of the right upper lobe. COMPARISON: CT chest 01/08/2020, 10/30/2019 TECHNIQUE: Multiple axial CT images of the chest were obtained without intravenous contrast. Coronal and sagittal reformats are provided. FINDINGS: Stable groundglass nodule in the super segment left lower lobe measuring 8 mm (series 3, image 23). F iducial markers identified in the right upper lobe with more central solid noncalcified pulmonary nod ule measuring 8 mm, previously measuring 10 mm on 01/08/2020 and 10 mm on 10/30/2019. There is increased groundglass changes along the periphery of the nodule. No new or enlarging solid component is identi fied. No pleural effusions, pulmonary vascular congestion or pneumothorax. Moderate to advanced centr ilobular pulmonary emphysema. Bronchial wall thickening compatible with bronchitis. No pleural effusi ons, pulmonary vascular congestion or pneumothorax. Ascending thoracic aorta measures 3.3 cm. Minor c oronary artery vascular calcifications. No pathologically enlarged thoracic lymph nodes. Upper abdome n is stable. No suspicious osseous abnormality is identified. IMPRESSION: 1. Decreased solid component of a solid noncalcified pulmonary nodule with associated fiducial marker s in the right upper lobe. There are increased peripheral groundglass changes which favors posttreatm ent related changes associated with radiation. 3 month follow-up chest CT could be of benefit to asse ss stability. Electronically signed by: Chelita Ding MD (04/05/2021 2:02 PM) [facility]
== END ==
LOC: CT 09:54
PROVIDERS: ATTEND Internal Medicine Hematology & Oncology
DX: C34.11 Malignant neoplasm of upper lobe, right bronchus or lung (principal); R91.1 Solitary pulmonary nodule; J43.2 Centrilobular emphysema; I25.10 Atherosclerotic heart disease of native coronary artery without angina pectoris
CPT/HCPCS: 71250

== ENCOUNTER → 2021-07-28 | Outpatient (CLI) | payer MEDICARE, OTHER ==
[2018-09-13 10:33] VITALS: BP 120/60
[~2021-07-28] MED LIST changes: +CIPR500T94 PO; -LISI-517 PO; +LISI5TAB15 PO; +METR-34 PO; +ONDA4TAB12 PO
[2021-07-28 10:14] LABS: BASO # 0.1 x10^3/uL (0.0-0.2); BASO % 1 % (0-3); EOS # 0.4 x10^3/uL (0.0-0.7); EOS % 4 % (0-3); HEMATOCRIT 36.8 % (36.0-47.0); HEMOGLOBIN 11.9 g/dL (12.0-15.5); LYMPH # 2.7 x10^3/uL (1.0-4.8); LYMPH % 32 % (24-48); MEAN CORPUSCULAR HEMOGLOBIN 29 pg (25-35); MEAN CORPUSCULAR HGB CONC 32 g/dL (31-37); MEAN CORPUSCULAR VOLUME 89 fL (79-100); MONO # 0.5 x10^3/uL (0.0-1.1); MONO % 6 % (0-9); NEUT # 4.9 x10^3/uL (1.8-7.7); NEUT % 58 % (31-73); PLATELET COUNT 399 x10^3/uL (140-400); RED BLOOD COUNT 4.15 x10^6/uL (3.50-5.40); RED CELL DISTRIBUTION WIDTH 14.6 % (11.5-14.5); WHITE BLOOD COUNT 8.4 x10^3/uL (4.0-11.0)
[2021-07-28 10:20] LABS: CALCIUM 8.5 mg/dL (8.5-10.1); CREATININE 0.9 mg/dL (0.6-1.0); GFR 75.6; POTASSIUM 4.1 mmol/L (3.5-5.1)
[2021-07-28 10:26] LABS: ALBUMIN 3.3 g/dL (3.4-5.0); ALBUMIN/GLOBULIN RATIO 0.8 (1.0-1.7); TOTAL BILIRUBIN 0.7 mg/dL (0.2-1.0); TOTAL PROTEIN 7.2 g/dL (6.4-8.2)
== END ==
LOC: ONCLAB 09:47
PROVIDERS: ATTEND Physician Assistant
DX: C34.11 Malignant neoplasm of upper lobe, right bronchus or lung (principal)
CPT/HCPCS: 36415; 80053; 83615; 85025

== ENCOUNTER 2021-08-04 12:43 | Emergency (ER) | payer MEDICARE, OTHER ==
[~2021-08-04] VITALS: Ht 162.6 cm; Wt 73.1 kg
[~2021-08-04 12:43] MED LIST changes: -CIPR500T94 PO; -METR-34 PO; -ONDA4TAB12 PO
[2021-08-04] MEDS ORDERED: fentaNYL PF VIAL 100 MCG/2 ML VIAL IV ONE (14:30)
[2021-08-04] MEDS ORDERED: IV NORMAL SALINE 1000ML BAG 1,000 ML IV ONE (14:30)
[2021-08-04] MEDS ORDERED: FAMOTIDINE 20 MG/2 ML VIAL IVP ONE (14:30)
[2021-08-04] MEDS ORDERED: ONDANSETRON PF 4 MG/2 ML VIAL. IVP ONE (14:30)
[2021-08-04 14:42] LABS: BILIRUBIN,URINE SMALL (NEG); CLARITY,URINE CLEAR; COLOR,URINE YELLOW; NITRITE,URINE NEGATIVE (NEG); PH,URINE 5.5 (<5.0-8.0); PROTEIN,URINE NEGATIVE (NEG-TRACE); UROBILINOGEN,URINE 0.2 mg/dL (0.2 mg/dL)
--- NOTE | 2021-08-04 14:45 | PHYS DOC ---
Past Medical History Past Medical History: Asthma, Cancer, COPD, Diabetes-Type II, Hypertension, Other Additional Past Medical Histor: breast and lung cancer history. Past Surgical History: Other Additional Past Surgical Histo: double mastectomy Smoking Status: Former Smoker Additional Information: Quit smoking 10 years ago, prior 20-year history of 1 pack/day Alcohol Use: Rarely Drug Use: None Social History Narrative: Unremarkable social history General Adult EDM: Chief Complaint: NAUSEA/VOMITING/DIARRHEA HPI: HPI: Patient is a 66-year-old female who presents to the emergency department through triage with a chief complaint of nausea vomiting and diarrhea the night prior and this morning. She reports that the diarrhea was mildly bloody she denies the presence of clots. She had one episode last night, and 3 this morning prior to arrival. The diarrhea is not associated at all with eating and does not occur postprandially. She also reported lower left quadrant and lower right quadrant abdominal pain and having a cold sweat last night. She has a past medical history significant for 2 prior primary cancers one being breast the other being lung the most recent cancer was in remission as of 2019 per the patient. The patient denies any recent weight loss or weight gain. She also reports that her last colonoscopy was 5 years prior. She denies being on any blood thinning medications, she denies being on a baby aspirin, she denies any past episodes of GI bleeding. Review of Systems: Review of Systems: Constitutional: Denies fever or chills Eyes: Denies redness or eye pain HENT: Denies nasal congestion or sore throat Respiratory: Denies cough or shortness of breath Cardiovascular: Denies chest pain or palpitations GI: Reports nausea, vomiting, bloody diarrhea. Reports lower left quadrant and lower right quadrant abdominal pain : Denies dysuria or hematuria Musculoskeletal: Denies back pain or joint pain Integument: Denies rash or skin lesions Neurologic: Denies headache, focal weakness or sensory changes Complete systems were reviewed and found to be within normal limits, except as documented in this note. Heart Score: C/O Chest Pain: N/A Family History: Family History: Unremarkable family history. Current Medications: Current Medications Medications (Trade) Dose Ordered Sig/Gladis Start Time Stop Time Status Last Admin Dose Admin Famotidine (Pepcid Vial) 20 mg 1X ONCE 08/04/21 14:30 08/04/21 14:31 DC Fentanyl Citrate (Fentanyl 2ml Vial) 50 mcg 1X ONCE 08/04/21 14:30 08/04/21 14:31 DC Ondansetron HCl (Zofran) 4 mg 1X ONCE 08/04/21 14:30 08/04/21 14:31 DC Sodium Chloride 1,000 ml @ 1,000 mls/hr 1X ONCE 08/04/21 14:30 08/04/21 15:29 Allergies: Allergies: Allergies Coded Allergies Type Severity Reaction Last Updated Verified Penicillins Allergy Intermediate Swelling 08/04/21 Yes Physical Exam: PE: Constitutional: Well developed, well nourished, mild distress, non-toxic appearance HENT: Normocephalic, atraumatic Eyes: conjunctiva normal, no discharge Neck: Normal range of motion, no tenderness, supple, no JVD Lungs & Thorax: No respiratory distress, equal chest rise and fall, lung sounds clear to auscultation bilaterally, normal chest wall excursion bilaterally Abdomen: Soft, tenderness on palpation to the left lower quadrant, no associated mass appreciated in the left lower quadrant, no rebound tenderness Skin: Warm, dry, no erythema, no rash Back: No tenderness, no CVA tenderness Extremities: No tenderness, ROM intact, no edema Neurologic: Alert and oriented X 3, normal motor function, normal sensory function, no focal deficits noted Psychologic: Affect normal, judgment normal Current Patient Data: Vital Signs: Vital Signs Date Time Temp Pulse Resp B/P (MAP) Pulse Ox O2 Delivery O2 Flow Rate FiO2 08/04/21 13:50 98.4 14 14 152/104 (120) 96 Room Air 98.4 EKG: EKG: [] Radiology/Procedures: Radiology/Procedures: [] Impression: PROCEDURE: CT ABD PELV W/ IV CONTRST ONLY INDICATION: Reason: LLQ pain, N/V/D / Spl. Instructions: OMNI 300 INJ. 75 MLS / History: COMPARISON: July 2019 PET/CT TECHNIQUE: Axial CT images were obtained through the abdomen and pelvis with intravenous contrast. One or more of the following individualized dose reduction techniques were utilized for this examination: 1. Automated exposure control; 2. Adjustment of the mA and/or kV according to patient size; 3. Use of iterative reconstruction technique. FINDINGS: Vascular: Multifocal plaque. Hepatobiliary: No intrahepatic biliary duct dilation. Pancreas: No peripancreatic edema. Spleen: Spleen unremarkable. Renal/Bladder: No hydronephrosis. Gastrointestinal: Free fluid within the pelvis. Wall thickening of the left side of the colon with adjacent edema to the fat. No periappendiceal inflammatory changes. Degenerative changes of the spine with multilevel central canal and neural foraminal stenosis. IMPRESSION: * Wall thickening of the left-side of colon with adjacent edema and free fluid. Could be secondary to colitis but would consider obtaining a follow-up to ensure this resolves to exclude any residual colonic mass contributing to this appearance. Electronically signed by: Prabhjot Wynn MD (08/04/2021 4:08 PM) [id number]- [id number] Course & Med Decision Making: Course & Med Decision Making 66-year-old female presents to the emergency department through triage with nausea, vomiting, and diarrhea. Patient reports one episode last night 3 episodes this morning of bloody diarrhea. Patient has no associated lighth eadedness or dizziness. Patient also with significant past medical history of 2 separate primary cancers. Plan for monitoring, IV, fluid administration, blood work, as well as CT imaging of the abdomen and pelvis, and urinalysis. Patient also administered pain and nausea medications. Patient labs resulted with a mild leukocytosis of 13.7. CT findings are as documented within this report, evidence of left-sided colonic wall thickening as well as edema and free fluid. Radiologist recommends following up on the imaging to ensure resolution and to make sure there is no underlying mass. Dragon Disclaimer: Dragon Disclaimer: This electronic medical record was generated, in whole or in part, using a voice recognition dictation system. Departure Departure Impression: Primary Impression: Colitis Disposition: 01 HOME / SELF CARE / HOMELESS Condition: STABLE Referrals: PRAFUL WYNN MD (PCP) Patient Instructions: Colitis Scripts Ciprofloxacin Hcl (CIPRO) 500 Mg Tablet 1 TAB PO BID for 7 Days, #14 TAB 0 Refills Prov: JOANNA MARTI DO 08/04/21 Ondansetron (ONDANSETRON ODT) 4 Mg Tab.rapdis 1 TAB PO PRN Q6-8HRS PRN for NAUSEA, #16 TAB Prov: JOANNA MARTI DO 08/04/21 Metronidazole (METRONIDAZOLE) 500 Mg Tablet 1 TAB PO TID for 7 Days, #21 TAB 0 Refills Prov: JOANNA MARTI DO 08/04/21 JOANNA MARTI DO Aug 04, 2021 14:45
[2021-08-04 14:51] LABS: BASO # 0.1 x10^3/uL (0.0-0.2); BASO % 1 % (0-3); EOS # 0.1 x10^3/uL (0.0-0.7); EOS % 1 % (0-3); HEMATOCRIT 38.5 % (36.0-47.0); HEMOGLOBIN 12.6 g/dL (12.0-15.5); LYMPH # 3.1 x10^3/uL (1.0-4.8); LYMPH % 23 % (24-48); MEAN CORPUSCULAR HEMOGLOBIN 29 pg (25-35); MEAN CORPUSCULAR HGB CONC 33 g/dL (31-37); MEAN CORPUSCULAR VOLUME 88 fL (79-100); MONO # 0.7 x10^3/uL (0.0-1.1); MONO % 6 % (0-9); NEUT # 9.4 x10^3/uL (1.8-7.7); NEUT % 70 % (31-73); PLATELET COUNT 387 x10^3/uL (140-400); RED BLOOD COUNT 4.37 x10^6/uL (3.50-5.40); RED CELL DISTRIBUTION WIDTH 14.5 % (11.5-14.5); WHITE BLOOD COUNT 13.4 x10^3/uL (4.0-11.0)
[2021-08-04 14:52] LABS: BACTERIA,URINE FEW /HPF (0-FEW); RBC,URINE OCC /HPF (0-2)
[2021-08-04 15:07] LABS: CALCIUM 9.7 mg/dL (8.5-10.1); CREATININE 0.9 mg/dL (0.6-1.0); GFR 75.6; POTASSIUM 3.5 mmol/L (3.5-5.1)
[2021-08-04 15:21] LABS: ALBUMIN 3.6 g/dL (3.4-5.0); ALBUMIN/GLOBULIN RATIO 0.8 (1.0-1.7); MAGNESIUM 1.8 mg/dL (1.8-2.4); TOTAL BILIRUBIN 0.7 mg/dL (0.2-1.0); TOTAL PROTEIN 7.9 g/dL (6.4-8.2)
[2021-08-04] MEDS ORDERED: IOHEXOL 300 MG/ML 100ML VIAL. IV ONE (15:45)
[2021-08-04] MEDS ORDERED: CONTRAST GIVEN. MC PRN (16:00)
--- NOTE | 2021-08-04 16:11 | RAD ---
INDICATION: Reason: LLQ pain, N/V/D / Spl. Instructions: OMNI 300 INJ. 75 MLS / History: COMPARISON: July 2019 PET/CT TECHNIQUE: Axial CT images were obtained through the abdomen and pelvis with intravenous contrast. One or more of the following individualized dose reduction techniques were utilized for this examinat ion: 1. Automated exposure control; 2. Adjustment of the mA and/or kV according to patient size; 3 . Use of iterative reconstruction technique. FINDINGS: Vascular: Multifocal plaque. Hepatobiliary: No intrahepatic biliary duct dilation. Pancreas: No peripancreatic edema. Spleen: Spleen unremarkable. Renal/Bladder: No hydronephrosis. Gastrointestinal: Free fluid within the pelvis. Wall thickening of the left side of the colon with ad jacent edema to the fat. No periappendiceal inflammatory changes. Degenerative changes of the spine with multilevel central canal and neural foraminal stenosis. IMPRESSION: * Wall thickening of the left-side of colon with adjacent edema and free fluid. Could be secondary to colitis but would consider obtaining a follow-up to ensure this resolves to exclude any residual c olonic mass contributing to this appearance. Electronically signed by: Prabhjot Wynn MD (08/04/2021 4:08 PM) [id number]
[2021-08-04 16:40] VITALS: BP 146/75
[2021-08-04] MEDS ORDERED: metroNIDAZOLE 500 MG TABLET PO ONE (17:15)
[2021-08-04] MEDS ORDERED: CIPROFLOXACIN HCL 250 MG TABLET. PO ONE (17:15)
[2021-08-04] MEDS ORDERED: CIPR500T94 PO (17:33)
[2021-08-04] MEDS ORDERED: ONDA4TAB12 PO (17:33)
[2021-08-04] MEDS ORDERED: METR-34 PO (17:33)
== END 2021-08-04 17:40 | disposition home or self-care (01) ==
LOC: ER 12:43
DX: K52.9 Noninfective gastroenteritis and colitis, unspecified (principal); J44.9 Chronic obstructive pulmonary disease, unspecified; E11.9 Type 2 diabetes mellitus without complications; I10 Essential (primary) hypertension; Z87.891 Personal history of nicotine dependence; Z88.0 Allergy status to penicillin
CPT/HCPCS: 36415; 74177; 80053; 81001; 83605; 83690; 83735; 85025; 87086; 96361; 96374; 96375; 99285; J2405; J3010; J3490; J7030; Q9967

== ENCOUNTER → 2021-08-16 | Outpatient (CLI) | payer MEDICARE, OTHER ==
[2021-08-04 16:40] VITALS: BP 146/75
[~2021-08-16] MED LIST changes: +CIPR500T94 PO; +METR-34 PO; +ONDA4TAB12 PO
--- NOTE | 2021-08-17 10:36 | RAD ---
EXAM: CT CHEST WITHOUT CONTRAST HISTORY: Malignant neoplasm right upper lobe, restaging lung cancer COMPARISON: CT chest 03/28/2021 and 01/27/2020 TECHNIQUE: Helical CT of the chest performed without contrast. Coronal and sagittal reformats were o btained. One or more of the following individualized dose reduction techniques were utilized for this examinat ion: 1. Automated exposure control 2. Adjustment of the mA and/or kV according to patient size 3. Use of iterative reconstruction technique. FINDINGS: Thyroid gland and thoracic inlet: Normal. Heart and great vessels: Heart is normal in size. There are coronary artery calcifications. No perica rdial effusion. The thoracic aorta is normal in caliber with mild calcified atherosclerosis. Mediastinum and lonnie: No mediastinal or hilar lymphadenopathy. Lungs and pleura: There are fiducial markers in the right upper lobe. The groundglass nodule in the r ight upper lobe around the the markers are slightly more spiculated in appearance but unchanged in si ze measuring 3.6 x 2.4 x 1.1 cm. The solid component within the ground glass opacities measures about 0.7 x 0.7 cm, unchanged. A solid nodule or inferiorly in the right upper lobe measures 3 mm, unchang ed (image 27, series 3). A 0.5 cm irregular ground glass nodule in the superior segment right lower l obe is unchanged (image 30, series 3). A 1.0 x 0.7 cm irregular groundglass nodule in the superior se gment of the left lower lobe is unchanged in size (image 23, series 3). A 0.5 cm nodule in the gold prospector ior left upper lobe was not clearly seen on 04/05/2021 but was present on 01/08/2020 and similar in appe arance (image 40 series 9). Mild emphysema. Airways are clear. Chest wall and axillae: No axillary lymphadenopathy. Upper abdomen: The upper abdomen is unremarkable. Bones: No acute osseous abnormality IMPRESSION: 1. Unchanged size of solid nodule in the right upper lobe and surrounding groundglass opacities in t he region of fiducial markers. The ground glass opacities are slightly more spiculated in appearance but appearance overall favors treatment changes. Residual malignancy not excluded. 2. A 1 cm irregular groundglass nodule in the superior segment of the left lower lobe, 5 mm irregula r groundglass nodule in the superior segment of the right lower lobe, and a 3 mm solid nodule in the right upper lobe are unchanged. A 5 mm solid nodule in the left upper lobe was not clearly seen on , possibly due to technical differences in the CTs, but is unchanged from 01/08/2020. Recommend continued surveillance. Electronically signed by: Vandana Mane MD (08/17/2021 10:33 AM) [id number]
== END ==
LOC: CT 10:58
PROVIDERS: ATTEND Internal Medicine Hematology & Oncology
DX: C34.11 Malignant neoplasm of upper lobe, right bronchus or lung (principal); R91.8 Other nonspecific abnormal finding of lung field; I25.10 Atherosclerotic heart disease of native coronary artery without angina pectoris; J43.9 Emphysema, unspecified; I70.0 Atherosclerosis of aorta
CPT/HCPCS: 71250

== ENCOUNTER → 2021-08-23 | Outpatient (CLI) | payer MEDICARE, OTHER ==
[2021-08-04 16:40] VITALS: BP 146/75
[~2021-08-23] MED LIST changes: +IOHEXOL 240 MG/ML 50ML VIAL. PO ONE; +IOHEXOL 300 MG/ML 100ML VIAL. IV ONE
--- NOTE | 2021-08-23 11:03 | RAD ---
Site ID: [id number] EXAMINATION: CT ABDOMEN+PELVIS W. Technique: Axial images with coronal and sagittal reconstructions are performed of abdomen and pelvis with intravenous contrast. 50 mL of Omnipaque 240 administered intravenously. One or more of the following radiation dose reduction techniques was used: automated exposure control , adjustment of mA and/or KV according to patient size, and/or utilization of iterative reconstructio n technique. HISTORY: 66 years Female Reason: HISTORY OF COLITIS, COLON WALL THICKENING COMPARISON: August 04, 2021. FINDINGS: The lung bases demonstrate no significant consolidation stable nodule measuring 1 cm seen in the cath eter right pericardial fat pad is unchanged from CT chest of June 12, 2019. The liver, gallbladder, spleen, pancreas, and adrenal glands appear unremarkable. The kidneys have sy mmetric enhancement. There is no hydronephrosis. The urinary bladder appear unremarkable. The uterus demonstrate mild lobulation in the left lateral a spect could relate to underlying fibroids. The previously seen wall thickening in the colon has resolved. There is a moderate amount of fecal ma terial seen in the colon. The appendix is normal. The abdominal aorta is normal in caliber. No para-aortic significantly enlarged lymph node is seen. Mild degenerative changes of the SI joints and the thoracolumbar junction in the spine. IMPRESSION: Resolution of the previously seen colitis changes. There is moderate amount of fecal material in the colon which could correlate with constipation. Electronically signed by: Sean Patterson MD (08/23/2021 11:01 AM) [id number]
== END ==
LOC: CT 09:34
PROVIDERS: ATTEND Physician Assistant
DX: K63.9 Disease of intestine, unspecified (principal); M47.815 Spondylosis without myelopathy or radiculopathy, thoracolumbar region; M46.1 Sacroiliitis, not elsewhere classified; Z87.19 Personal history of other diseases of the digestive system
CPT/HCPCS: 74177; Q9966; Q9967

== ENCOUNTER → 2021-12-14 | Outpatient (CLI) | payer MEDICARE, OTHER ==
[~2021-12-14] MED LIST changes: -IOHEXOL 240 MG/ML 50ML VIAL. PO ONE; -IOHEXOL 300 MG/ML 100ML VIAL. IV ONE; -OMEP20TA8 PO; +OMEP20TA91 PO
--- NOTE | 2021-12-14 16:23 | RAD ---
EXAMINATION: CT Chest Without IV contrast. INDICATION:66 years, Female, restaging lung cancer. COMPARISON: 08/16/2021. TECHNIQUE: Spiral CT was obtained from the jugular notch through the posterior costophrenic recess. 3 -D MIPS, sagittal and coronal reformats were obtained. Exposure: One or more of the following individualized dose reduction techniques were utilized for thi s examination: 1. Automated exposure control 2. Adjustment of the mA and/or kV according to patient size 3. Use of iterative reconstruction technique. FINDINGS: LUNGS/PLEURA: Central airways are patent. Stable ill-defined groundglass opacity in the right upper l obe with fiducial markers in place, measures 5.7 cm in maximum dimension. No new soft tissue nodulari ty to suggest local tumor recurrence. Stable 3 mm solid pulmonary nodule in the right upper lobe (ser ies 3 image 27). Stable 5 mm irregular groundglass nodule in the superior segment of the right lower lobe (series 3 image 30). Stable 1.0 cm irregular groundglass nodule in the superior segment of the l eft lower lobe (series 3 image 25). No new or enlarging pulmonary nodule. MEDIASTINUM: No pathologic mediastinal or hilar adenopathy. The thoracic aorta and pulmonary arteries are normal in caliber. The heart is normal in size. No pericardial effusion. Moderate calcified ed nary atherosclerosis. The visualized thyroid and the esophagus are unremarkable. AXILLA/SOFT TISSUE: No supraclavicular or axillary adenopathy. Regional soft tissues are within raffy l limits. UPPER ABDOMEN: The visualized upper abdomen appears unremarkable. BONES: No evidence of acute fractures or aggressive osseous lesions. IMPRESSION: 1. Stable ill-defined groundglass opacity in the right upper lobe with fiducial markers in place. No new soft tissue nodularity to suggest local tumor recurrence. 2. Stable pulmonary nodules measuring up to 1.0 cm. 3. Moderate calcified coronary atherosclerosis. Electronically signed by: Christina Darby MD (12/14/2021 4:21 PM) [facility]
== END ==
LOC: CT 10:21
PROVIDERS: ATTEND Internal Medicine Hematology & Oncology
DX: C34.11 Malignant neoplasm of upper lobe, right bronchus or lung (principal); R91.8 Other nonspecific abnormal finding of lung field; I25.10 Atherosclerotic heart disease of native coronary artery without angina pectoris
CPT/HCPCS: 71250